=== PATIENT | female | born 1980 | race Caucasian/White ===

== ENCOUNTER 2022-12-02 13:34 | Outpatient (CLI) | payer BC, SELFPAY ==
--- NOTE | 2022-12-02 14:00 | CRLHL7_ITS ---
For Patients: As a result of the Century Cures Act, medical imaging exams and procedure reports are released immediately into your electronic medical record. You may view this report before your referring provider. If you have questions, please contact your health care provider. INDICATION: Shortness of breath. COVID-19. TECHNIQUE: CT of the chest. 95 cc nonionic Isovue-370 administered. COMPARISON: None. FINDINGS: No evidence for acute pulmonary emboli. No thoracic aortic aneurysm or dissection. No pleural or pericardial effusions. Clear lungs. No pneumothoraces nodules or infiltrates. The trachea and mainstem bronchi are patent and clear. Images of the upper abdomen demonstrate normal adrenal glands. No splenomegaly. Cholelithiasis. The visualized included kidneys are grossly unremarkable. Probable 1.1 cm cyst left hepatic lobe image 136 series 4. Normal included skeleton. IMPRESSION: 1. Negative contrast enhanced chest CT. 2. Cholelithiasis. Please note that all CT scans at this facility use dose modulation, iterative reconstruction, and/or weight-based dosing when appropriate to reduce radiation dose to as low as reasonably achievable. Dictated by Baltazar Maier MD @ 12/02/2022 7:18:45 PM (Electronically Signed)
== END 2022-12-02 13:35 | disposition home or self-care (01) ==
PROVIDERS: PCP Family Medicine; Visit Provider Internal Medicine
DX: R06.02 Shortness of breath (principal); U07.1 COVID-19; K80.20 Calculus of gallbladder without cholecystitis without obstruction
CPT/HCPCS: 71260; Q9967